=== PATIENT | male | born 1990 | race American Indian/Alaskan Native ===

== ENCOUNTER 2020-02-15 18:57 | Emergency (ER) | payer SELFPAY ==
[2020-02-16 00:08] LABS: Basophils # (Auto) 0.1 K/mm3 (0.0-0.1); Basophils % (Auto) 1.6 % (0.0-1.8); Eosinophils # (Auto) 0.3 K/mm3 (0.0-0.4); Eosinophils % (Auto) 4.1 % (0.0-4.3); Hematocrit 41.6 % (35.5-45.6); Hemoglobin 14.1 gm/dl (11.8-15.2); Lymphocytes # (Auto) 3.1 K/mm3 (1.2-5.4); Lymphocytes % (Auto) 49.7 % (13.4-35.0); Mean Corpuscular HGB Conc 34 % (32-34); Mean Corpuscular Volume 79 fl (84-94); Monocytes # (Auto) 0.5 K/mm3 (0.0-0.8); Monocytes % (Auto) 8.8 % (0.0-7.3); Platelet Count 244 K/mm3 (140-440); Red Blood Count 5.24 M/mm3 (3.65-5.03)
[2020-02-16 00:20] LABS: Bilirubin,Urine NEG (Negative); Blood,Urine SM (Negative); Color,Urine Yellow (Yellow); Mucus,Urine 1+ /HPF; Urobilinogen,Urine < 2.0 mg/dL (<2.0)
[2020-02-16 00:21] LABS: Protein,Urine >500 mg/dL (Negative)
[2020-02-16] MEDS ORDERED: DIPHENOXYLATE/ATROPINE TAB PO ONE (00:27)
[2020-02-16] MEDS ORDERED: FAMOTIDINE 20 MG TAB PO ONE (00:27)
[2020-02-16] MEDS ORDERED: ONDANSETRON 4 MG ODT TAB PO ONE (00:27)
[2020-02-16 00:32] LABS: Alanine Aminotransferase 44 units/L (7-56); Albumin 3.7 g/dL (3.9-5); BUN/Creatinine Ratio 11; Blood Urea Nitrogen 10 mg/dL (9-20); Calcium 8.5 mg/dL (8.4-10.2); Hemolysis Index 55
--- NOTE | 2020-02-16 01:05 | Emergency Department Report ---
ED N/V/D HPI - General Chief complaint: Fever Stated complaint: NAUSEA/FEVER/ Source: patient Mode of arrival: Ambulatory Limitations: No Limitations - History of Present Illness Initial comments: Patient is a 29-year-old -Citizen Of [place] male with a history of chronic morbid obesity who presents to the ED with a complaint of acute onset persistent intermittent nausea and vomiting and diarrhea for the last 3 days. Patient states that his symptoms began after he ate at a restaurant some [place] food. Patient states that the first 24 hours the symptoms were worse but so far he has not had any nausea vomiting for the last 24 hours. Patient states that the diarrhea has been persistent although the last time he had one was 6 hours prior to arrival in the ED. Patient denies abdominal pain, fever, chills, dizziness, syncope, chest pain, shortness of breath, cough, dysuria, urinary frequency and urgency, syncope, sore throat, nasal and sinus congestion, testicular pain, hematochezia, hematemesis or change in vision. MD complaint: nausea, vomiting, diarrhea -: Sudden, days(s) (3) Description of Vomiting: food contents Description of Diarrhea: water Associated Abdominal Pain: No Location: diffuse Radiation: none Severity: moderate Pain Scale: 3 Quality: dull Consistency: intermittent Improves with: none Worsens with: none Context: possible food poisoning Associated Symptoms: denies other symptoms, myalgias, loss of appetite, malaise, nausea/vomiting. denies: chest pain, cough, diaphoresis, fever/chills, headaches, rash, dysuria, shortness of breath, syncope - Related Data Previous Rx's Medication Instructions Recorded Last Taken Type Diphenoxylate/Atropine [Lomotil] 1 - 2 tab PO Q4H PRN #15 tablet 02/16/20 Unknown Rx Famotidine [Pepcid] 20 mg PO Q12H #30 tablet 02/16/20 Unknown Rx Ondansetron [Zofran Odt] 4 mg PO Q6HR PRN #20 tab.rapdis 02/16/20 Unknown Rx Allergies Allergy/AdvReac Type Severity Reaction Status Date / Time adhesive tape Allergy Unknown Verified 02/15/20 19:59 morphine Allergy Unknown Verified 02/15/20 19:59 ED Review of Systems ROS: Stated complaint: NAUSEA/FEVER/ Other details as noted in HPI Constitutional: denies: chills, fever Eyes: denies: eye pain, eye discharge, vision change ENT: denies: ear pain, throat pain Respiratory: denies: cough, shortness of breath, wheezing Cardiovascular: denies: chest pain, palpitations Endocrine: no symptoms reported Gastrointestinal: nausea, vomiting, diarrhea. denies: abdominal pain Genitourinary: denies: urgency, dysuria Musculoskeletal: denies: back pain, joint swelling, arthralgia Skin: denies: rash, lesions Neurological: denies: headache, weakness, paresthesias Psychiatric: denies: anxiety, depression Hematological/Lymphatic: denies: easy bleeding, easy bruising ED Past Medical Hx - Past Medical History Previous Medical History?: Yes Hx Hypertension: Yes - Surgical History Past Surgical History?: Yes Additional Surgical History: MULTIPLE BILATERAL TO BLL FOR CORRECTION - Social History Smoking Status: Never Smoker Substance Use Type: None - Medications Home Medications: Home Medications Medication Instructions Recorded Confirmed Last Taken Type Diphenoxylate/Atropine [Lomotil] 1 - 2 tab PO Q4H PRN #15 tablet 02/16/20 Unknown Rx Famotidine [Pepcid] 20 mg PO Q12H #30 tablet 02/16/20 Unknown Rx Ondansetron [Zofran Odt] 4 mg PO Q6HR PRN #20 tab.rapdis 02/16/20 Unknown Rx ED Physical Exam - General Limitations: No Limitations General appearance: alert, in no apparent distress - Head Head exam: Present: atraumatic, normocephalic, normal inspection - Eye Eye exam: Present: normal appearance, PERRL, EOMI Pupils: Present: normal accommodation - ENT ENT exam: Present: normal exam, normal orophraynx, mucous membranes moist, TM's normal bilaterally, normal external ear exam - Neck Neck exam: Present: normal inspection, full ROM - Respiratory Respiratory exam: Present: normal lung sounds bilaterally. Absent: respiratory distress, wheezes, rales, rhonchi, chest wall tenderness, accessory muscle use, decreased breath sounds, prolonged expiratory - Cardiovascular Cardiovascular Exam: Present: regular rate, normal rhythm, normal heart sounds. Absent: systolic murmur, diastolic murmur, rubs, gallop - GI/Abdominal GI/Abdominal exam: Present: soft, normal bowel sounds. Absent: tenderness, guarding, rebound, hyperactive bowel sounds - Extremities Exam Extremities exam: Present: normal inspection, full ROM, normal capillary refill - Back Exam Back exam: Present: normal inspection, full ROM. Absent: tenderness, CVA tenderness (R), muscle spasm, paraspinal tenderness, vertebral tenderness - Neurological Exam Neurological exam: Present: alert, oriented X3, CN II-XII intact, normal gait, reflexes normal - Psychiatric Psychiatric exam: Present: normal affect, normal mood - Skin Skin exam: Present: warm, dry, intact, normal color. Absent: rash ED Course Vital Signs 02/15/20 19:52 Temperature 98.9 F Pulse Rate 87 Respiratory 20 Rate Blood Pressure 170/111 O2 Sat by Pulse 97 Oximetry ED Medical Decision Making - Lab Data Result diagrams: 02/15/20 23:38 02/15/20 23:38 - Medical Decision Making This is a 29-year-old -Citizen Of [place] male with a history of chronic morbid obesity who presents to the ED with a complaint of acute onset persistent intermittent nausea and vomiting and diarrhea for the last 3 days. Patient states that his symptoms began after he ate at a restaurant some [place] food. Patient states that the first 24 hours the symptoms were worse but so far he has not had any nausea vomiting for the last 24 hours. Patient states that the diarrhea has been persistent although the last time he had one was 6 hours prior to arrival in the ED. In the ED, patient is alert and oriented x3 and is not in distress. Patient was treated for nausea and vomiting, also given antacids and antidiarrheal medication. Lab test results were reviewed and are all nonaction able. Patient was discharged home on medications based on the history and physical exam findings. Patient was advised to maintain a clear liquid diet for 12 to 24 hours, take medications as needed and follow-up with his primary care physician in 5 to 7 days for reevaluation. Patient was advised to return to the ED immediately if symptoms get worse. - Differential Diagnosis gastroenteritis; GERD; Dehydration; viral syndrome Critical care attestation.: If time is entered above; I have spent that time in minutes in the direct care of this critically ill patient, excluding procedure time. ED Disposition Clinical Impression: Viral gastroenteritis, Nausea, vomiting and diarrhea Disposition: TO HOME OR SELFCARE Is pt being admited?: No Does the pt Need Aspirin: No Condition: Stable Instructions: Acute Nausea and Vomiting (ED), Acute Diarrhea (ED), Gastroenteritis (ED) Additional Instructions: Maintain a clear liquid diet for 12 to 24 hours, drink plenty of fluids, take medication as advised and follow-up with your primary care physician in 5 to 7 days for reevaluation. Return to the ED immediately if symptoms get worse. Prescriptions: Diphenoxylate/Atropine [Lomotil] 1 - 2 tab PO Q4H PRN #15 tablet PRN Reason: Diarrhea Famotidine [Pepcid] 20 mg PO Q12H #30 tablet Ondansetron [Zofran Odt] 4 mg PO Q6HR PRN #20 tab.rapdis PRN Reason: Nausea Referrals: [facility] [Provider Group] - 3-5 Days Time of Disposition: 01:10 Print Language: [place]
[2020-02-16 02:28] VITALS: BP 165/98
== END 2020-02-16 02:28 | disposition home or self-care (01) ==
LOC: ED 18:57
DX: A08.4 Viral intestinal infection, unspecified (principal); R11.2 Nausea with vomiting, unspecified; R19.7 Diarrhea, unspecified; I10 Essential (primary) hypertension
CPT/HCPCS: 36415; 80053; 81001; 83690; 85025; 99283; Q0162